=== PATIENT | female | born 1975 ===

== ENCOUNTER 2020-04-12 | Outpatient (CLI) | payer OTHER | END 2020-04-12 15:11 | disposition home or self-care (01) | LOC: PPH VACUNA | DX: Z23 Encounter for immunization (principal) ==

== ENCOUNTER 2021-01-18 13:25 | Outpatient (CLI) | payer OTHER | END 2021-01-18 13:30 | disposition home or self-care (01) | LOC: PPH VACUNA 13:25 | PROVIDERS: ATTEND Emergency Medicine Pediatric Emergency Medicine | DX: Z23 Encounter for immunization (principal) ==